=== PATIENT | female | born 1995 | race Caucasian/White ===

== ENCOUNTER 2022-06-22 17:13 | Emergency (ER) | payer OTHER ==
[~2022-06-22] VITALS: Ht 170.2 cm; Wt 52.2 kg
[2022-06-22] MEDS ORDERED: ELIMITE60 GM TOP (17:31)
== END 2022-06-22 18:09 | disposition home or self-care (01) ==
LOC: ER 17:20
DX: B85.0 Pediculosis due to Pediculus humanus capitis (principal); B86 Scabies
CPT/HCPCS: 99283